=== PATIENT | female | born 1955 | race Caucasian/White ===

== ENCOUNTER 2016-07-29 21:04 | Emergency (ER) | payer BC ==
[~2016-07-29] VITALS: Ht 165.1 cm; Wt 73.6 kg
[2016-07-29 21:10] VITALS: TEMP 36.9; Ht 165.1 cm; Wt 73.6 kg
[2016-07-29] MEDS ORDERED: GLIM4TAB2 PO (21:51)
[2016-07-29] MEDS ORDERED: SITA50TA5 PO (21:51)
[2016-07-29] MEDS ORDERED: SODIUM CHLORIDE 0.9% 1000ML 1,000 ML IV STA (22:14)
[2016-07-29] MEDS ORDERED: SODIUM CHLORIDE 0.9% 500ML 500 ML IV STA (22:14)
[2016-07-29] MEDS ORDERED: ONDANSETRON INJ 2 MG/ML 2 ML VIAL IV STA (22:14)
[2016-07-29] MEDS ORDERED: MoRPHine SULFATE 4 MG/ML 1 ML CARP\\VIAL IV STA (22:14)
--- NOTE | 2016-07-29 22:44 | DIAGNOSTIC IMAGING REPORT ---
SINGLE VIEW CHEST CLINICAL HISTORY: Atypical chest pain. FINDINGS: An AP, portable, upright chest radiograph is obtained. No prior studies are available for comparison at the time of dictation. The examination is degraded by portable technique and patient rotation. The cardiomediastinal silhouette is unremarkable. Nonspecific interstitial thickening is noted. The lungs and pleural spaces are otherwise clear. No pneumothorax is seen. The skeletal structures are osteopenic. The bony thorax is grossly intact. IMPRESSION: No active disease in the chest. Electronically signed by: Dario Pérez M.D. 07/29/2016 10:42 PM Dictated Date/Time: 07/29/2016 10:42 PM
[2016-07-29 23:00] VITALS: O2SAT 99
[2016-07-29 23:13] LABS: BASO % 0.2 %; BASO ABS # 0.02 K/uL (0-0.2); COMPLETE YES; HEMATOCRIT 39.3 % (37-47); IG% 0.5 %; LYMPH % 8.2 %; LYMPH ABS # 0.85 K/uL (1.2-3.4); MEAN CELL VOLUME 86.6 fL (80-100); MEAN CORPUSCULAR HEMOGLOBIN 30.8 pg (25-34); MEAN CORPUSCULAR HGB CONC 35.6 g/dl (32-36); MEAN PLATELET VOLUME 8.5 fL (7.4-10.4); MONO % 5.4 %; NEUT % 85.7 %; PLATELET COUNT 234 K/uL (130-400); RED BLOOD COUNT 4.54 M/uL (4.2-5.4)
[2016-07-29 23:29] LABS: ALT/SGPT 34 U/L (12-78); BLOOD UREA NITROGEN 16 mg/dl (7-18); BUN/CREATININE RATIO 15.9 (10-20); CALCIUM 9.7 mg/dl (8.5-10.1); CARBON DIOXIDE 29 mmol/L (21-32); CHLORIDE 101 mmol/L (98-107); GLUCOSE 225 mg/dl (70-99); POTASSIUM 4.2 mmol/L (3.5-5.1); SODIUM 137 mmol/L (136-145)
[2016-07-29 23:34] LABS: ALKALINE PHOSPHATASE 84 U/L (45-117); AST/SGOT 19 U/L (15-37)
[2016-07-30] MEDS ORDERED: CEFOXITIN 2000MG/60 ML D5W IV STA (01:36)
[2016-07-30 03:12] VITALS: BP 132/72; PULSE 78; O2SAT 96
--- NOTE | 2016-07-30 03:22 | EMERGENCY ROOM VISIT NOTE ---
History First contact with patient: 22:04 Chief Complaint: ABDOMINAL PAIN Stated Complaint: BACK ACHE, STOMACH HURTS, VOMITING, HIGH SUGAR 249 Nursing Triage Summary: Pt c/o abd pain, nausea, vomiting, ongoing since this morning. Seen at [facility], "they couldn't find anything". pt given Zofran. Hx of Diabetes, last BSG 224 History of Present Illness The patient is a 60 year old female who presents to the Emergency Room with complaints of nausea, vomiting, epigastric right upper quadrant pain for the past several hours. Patient is visiting from [facility]. She is here for a conference. Patient had eggs and sausage this morning at around 11 had yogurt and shortly after that felt ill. She developed epigastric right quadrant pain and nausea and vomiting. Pain persisted and this prompted her to come to the ER. No history of similar symptoms in the past. Blood sugars are normally well controlled that were 224 today. Patient describes the pain as aching, ranging in severity 7 out of 10. Nothing makes it better or worse. Patient denies chest pain, dyspnea, diarrhea, urinary symptoms. No prior heart disease. She rarely drinks alcohol. Review of Systems See HPI for pertinent positives & negatives. A total of 10 systems reviewed and were otherwise negative. Past Medical/Surgical History Diabetes, hyperlipidemia Social History Smoking Status: Former Smoker Smokeless Tobacco Use: No Alcohol Use: occasionally Drug Use: none Marital Status: Housing Status: lives with family Occupation Status: employed Current/Historical Medications Scheduled Glimepiride (Glimepiride), Unknown Dose PO BID Sitagliptin-Metformin Hcl (Janumet), 1 TAB PO BID Allergies Coded Allergies: No Known Allergies (Unverified , 07/29/16) Physical Exam Vital Signs Date Time Temp Pulse Resp B/P (MAP) Pulse Ox O2 Delivery O2 Flow Rate FiO2 07/30/16 00:52 78 18 149/82 98 Room Air 07/29/16 23:10 76 20 148/89 99 Room Air 07/29/16 23:05 77 07/29/16 23:00 99 Room Air 07/29/16 23:00 99 Room Air 07/29/16 21:10 36.9 72 18 155/86 99 Room Air Pain Rating (0-10): 2.0 Physical Exam VITALS: Vitals are noted on the nurse's note and reviewed by myself. Vital signs stable. GENERAL: Pleasant female who appears in pain, in no acute distress, nondiaphoretic, well-developed well-nourished. SKIN: The skin was without rashes, erythema, edema, or bruising. There is no tenting of the skin. Capillary reflex less than 2 seconds. HEAD: Normocephalic atraumatic. EARS: External auditory canals clear, tympanic membranes pearly mensah without erythema or effusion bilaterally. EYES: Pupils equal round and reactive to light and accommodation. Conjunctivae without injection, sclerae without icterus. Extraocular movements intact. NOSE: Patent, turbinates without inflammation or discharge. MOUTH: Mucous membranes moist. Pharynx without erythema or exudate. Uvula midline. Airway patent. Tongue does not deviate. NECK: Supple without nuchal rigidity. No lymphadenopathy. No thyromegaly. Cervical spine is nontender. No JVD. HEART: Regular rate and rhythm without murmurs gallops or rubs. LUNGS: Clear to auscultation bilaterally without wheezes, rales or rhonchi. No dullness to percussion. No retractions or accessory muscle use. ABDOMEN: Positive bowel sounds x 4. Normal tympanic percussion. Soft, tender to palpation right upper quadrant, no CVA tenderness, without masses or organomegaly. Cartwright sign positive. No guarding or rebound tenderness. MUSCULOSKELETAL: No muscle atrophy, erythema, or edema noted. NEURO: Patient was alert and oriented to person place and time. Normal sensation to light and sharp touch. No focal neurological deficits. Medical Decision & Procedures Laboratory Results 07/29/16 23:00 Red Blood Count 4.54, Mean Corpuscular Volume 86.6, Mean Corpuscular Hemoglobin 30.8, Mean Corpuscular Hemoglobin Concent 35.6, Mean Platelet Volume 8.5, Neutrophils (%) (Auto) 85.7, Lymphocytes (%) (Auto) 8.2, Monocytes (%) (Auto) 5.4, Eosinophils (%) (Auto) 0.0, Basophils (%) (Auto) 0.2, Neutrophils # (Auto) 8.92, Lymphocytes # (Auto) 0.85, Monocytes # (Auto) 0.56, Eosinophils # (Auto) 0.00, Basophils # (Auto) 0.02 07/29/16 23:00 Test 07/29/16 23:00 07/29/16 23:06 White Blood Count 10.40 K/uL (4.8-10.8) Red Blood Count 4.54 M/uL (4.2-5.4) Hemoglobin 14.0 g/dL (12.0-16.0) Hematocrit 39.3 % (37-47) Mean Corpuscular Volume 86.6 fL (80-100) Mean Corpuscular Hemoglobin 30.8 pg (25-34) Mean Corpuscular Hemoglobin Concent 35.6 g/dl (32-36) Platelet Count 234 K/uL (130-400) Mean Platelet Volume 8.5 fL (7.4-10.4) Neutrophils (%) (Auto) 85.7 % Lymphocytes (%) (Auto) 8.2 % Monocytes (%) (Auto) 5.4 % Eosinophils (%) (Auto) 0.0 % Basophils (%) (Auto) 0.2 % Neutrophils # (Auto) 8.92 K/uL (1.4-6.5) Lymphocytes # (Auto) 0.85 K/uL (1.2-3.4) Monocytes # (Auto) 0.56 K/uL (0.11-0.59) Eosinophils # (Auto) 0.00 K/uL (0-0.5) Basophils # (Auto) 0.02 K/uL (0-0.2) RDW Standard Deviation 40.2 fL (36.4-46.3) RDW Coefficient of Variation 12.6 % (11.5-14.5) Immature Granulocyte % (Auto) 0.5 % Immature Granulocyte # (Auto) 0.05 K/uL (0.00-0.02) Anion Gap 7.0 mmol/L (3-11) Est Creatinine Clear Calc Drug Dose 59.4 ml/min Estimated GFR () 70.4 Estimated GFR (Non- 60.8 BUN/Creatinine Ratio 15.9 (10-20) Calcium Level 9.7 mg/dl (8.5-10.1) Total Bilirubin 0.4 mg/dl (0.2-1) Direct Bilirubin 0.1 mg/dl (0-0.2) Aspartate Amino Transf (AST/SGOT) 19 U/L (15-37) Alanine Aminotransferase (ALT/SGPT) 34 U/L (12-78) Alkaline Phosphatase 84 U/L (45-117) Troponin I < 0.015 ng/ml (0-0.045) Total Protein 7.6 gm/dl (6.4-8.2) Albumin 4.0 gm/dl (3.4-5.0) Lipase 291 U/L (73-393) Bedside Troponin I < 0.030 ng/ml (0-0.045) Medications Administered Medications (Trade) Dose Ordered Sig/Sury Route Start Time Stop Time Status Last Admin Dose Admin Morphine Sulfate (MoRPHine SULFATE INJ) 4 mg NOW STAT IV 07/29/16 22:14 07/29/16 22:16 DC 07/29/16 23:12 4 MG Ondansetron HCl (Zofran Inj) 4 mg NOW STAT IV 07/29/16 22:14 07/29/16 22:16 DC 07/29/16 23:12 4 MG Sodium Chloride 1,000 ml @ 125 mls/hr Q8H STAT IV 07/29/16 22:14 07/30/16 06:13 07/29/16 23:13 125 MLS/HR Sodium Chloride 500 ml @ 999 mls/hr Q31M STAT IV 07/29/16 22:14 07/29/16 22:44 DC 07/29/16 23:14 999 MLS/HR Cefoxitin Sodium (Mefoxin 2000mg/ 60 ml D5W) 2,000 mg NOW STAT IV 07/30/16 01:36 07/30/16 01:37 DC 07/30/16 01:47 2,000 MG ED Course Prior records/ancillary studies reviewed. Triage Nursing notes reviewed. The patient's history was concerning for abdominal pain. Differential diagnosis: Etiologies such as appendicitis, diverticulitis, PUD, biliary pathology, UTI, pancreatitis, obstruction, mesenteric ischemia, aortic pathology, infections, inflammatory bowel disease, renal colic, as well as others were entertained. Physical examination findings: As above. ER treatment provided: Morphine, Zofran, IV fluids, Mefoxin On reassessment the patient felt better. Diagnostics interpreted by me: ECG: Normal sinus, normal intervals, no acute ST-T wave changes. Impression normal sinus rhythm interpreted by myself The labs revealed no leukocytosis. Negative troponin Imaging studies: Chest x-ray with no acute consolidation, pneumothorax or free air per my interpretation Ultrasound was reviewed and read by stat radiology concerning for acute cholecystitis Consultation: A consultation was placed with the surgeon, Dr. Palmer. The case was discussed and diagnostics were reviewed. The patient was evaluated in the ER for further treatment. The patient is requesting to be transferred to [facility], where she is from. Arrangements were made by Dr. Palmer and Dr. Zapata is the accepting surgeon at the [facility]. Patient was transferred to [facility] via private vehicle in stable condition. Patient was given antibiotics. She was placed nothing by mouth. Exam and history seem consistent with acute cholecystitis. Patient is requesting transfer to her home hospital. These arrangements were made. She was informed to go to the nearest ER she had any problems in her travel back home. She verbalized understanding of this. She was advised no eating or drinking whatsoever. By the evaluation outlined above emergent etiologies such as appendicitis, diverticulitis, PUD, UTI, pancreatitis, obstruction, mesenteric ischemia, aortic pathology, inflammatory bowel disease, renal colic, as well as others were deemed relatively unlikely. The pt informed about the findings as listed above. All questions were answered and pleased with the treatment. Case was transferred to [facility], where she is fro in stable condition. Case reviewed with my attending. Medical Decision As above Impression Primary Impression: Acute cholecystitis Departure Information Dispostion Transfer Acute Care Facility Condition GOOD Forms HOME CARE DOCUMENTATION FORM, IMPORTANT VISIT INFORMATION Patient Instructions [facility], ED Gallbladder Infec Poss Additional Instructions Go straight to [place] [facility]. You should be evaluated by Dr. Krishna Haddad or his resident Yo[place]. Bring your paperwork with you. Leave your Hep-Lock IV site alone. Do not eat or drink anything. Go to nearest ER for fevers, vomiting, pain, worsening signs or symptoms or as needed.
--- NOTE | 2016-07-30 07:10 | DIAGNOSTIC IMAGING REPORT ---
ABDOMINAL ULTRASOUND, RIGHT UPPER QUADRANT HISTORY: epigastric pain. COMPARISON: None. FINDINGS: Pancreas: The pancreatic tail is obscured by overlying bowel gas. The remaining portions of the pancreas are within normal limits. Pancreatic duct is slightly prominent at 3 mm. Liver: Unremarkable. Gallbladder: There is a 3.2 cm stone within the neck of the gallbladder which is nonmobile. The gallbladder mccoy thickened up to 7 mm and appears heterogeneous. There may be edema within the wall at the hepatic surface. A few punctate foci of common tail artifact within the gallbladder wall. CBD: 8 mm in diameter. Right kidney: No hydronephrosis. IMPRESSION: A 3.2 cm stone which may be impacted in the gallbladder neck. The gallbladder wall is thickened and appears edematous. Findings are concerning for acute cholecystitis. Clinical recommended. Electronically signed by: Donavon Holden M.D. 07/30/2016 7:09 AM Dictated Date/Time: 07/30/2016 7:06 AM
--- NOTE | 2016-07-30 07:12 | SURGICAL CONSULTATION ---
DATE OF CONSULTATION: 07/30/2016 I have been asked by Patricia Francisco PA-C, to see this 60-year-old female who presented to the Emergency Room with a complaint of upper abdominal pain that began at noontime. The pain was described as sharp and severe. It radiated through to her back and then was associated with nausea and she had a few episodes of vomiting. There was no hematemesis. She has never had pain like this before. It was slightly exacerbated by motion. She had 2 normal bowel movements without melena or hematochezia and had no dysuria or hematuria. She presented to the emergency room where a workup was performed and she was given morphine. The most recent morphine was 2 hours prior to my visit. At the time that I saw her, she was pain free. PAST MEDICAL HISTORY: For type 2 diabetes and hypercholesterolemia, although she chose not to be medicated for the hypercholesterolemia. PAST SURGICAL HISTORY: None. MEDICATIONS: Glimepiride and Janumet. ALLERGIES: None. PHYSICAL EXAMINATION: GENERAL: Reveals a well-developed, well-nourished female who appears in no acute distress. VITAL SIGNS: Blood pressure 132/72, heart rate 78, respirations 18, temperature 36.9, pulse oximetry is 96% on room air. HEENT: Reveals the sclerae to be anicteric. Mucous membranes are moist. NECK: Supple with no adenopathy. BACK: Has no spinal or CVA tenderness. LUNGS: Clear. HEART: Regular. ABDOMEN: Soft, nondistended, nontender, with no masses and no hepatomegaly. EXTREMITIES: Reveal no edema. LABORATORY DATA: WBC 10.4, H&H is 14.0 and 39.3, platelet count is 234,000. Sodium 137, potassium 4.2, chloride 101, CO2 of 29, BUN 16, creatinine 1.0, total bilirubin 0.4, AST 19, ALT 84, alkaline phosphatase 84. Troponin I is less than 0.30. Lipase 291. Ultrasound of the gallbladder and liver showed a large shadowing stone near the neck of the gallbladder, measuring 3.2 cm, and appeared to be nonmobile. The gallbladder wall was 7 mm and heterogeneous, suggesting edema. There may have been a small amount of free fluid and the common bile duct measured 8 mm. ASSESSMENT AND PLAN: This patient has cholelithiasis with an episode of acute cholecystitis, but her symptoms have resolved and she is not tender. I recommended that she undergo a cholecystectomy. She does not want the procedure performed at [facility] as she is from the [place] area and lives near [facility]. We have arranged for her to go to the Emergency Room at [facility] immediately after leaving [facility]. She assures me she will do that. I have contacted the surgical appliances salesperson at [facility] who contacted the surgeon on-call and has agreed to accept the patient.
== END 2016-07-30 03:14 | disposition short-term general hospital (02) ==
LOC: C.EDB 21:06
DX: K81.0 Acute cholecystitis (principal); E11.9 Type 2 diabetes mellitus without complications; E78.5 Hyperlipidemia, unspecified; Z87.891 Personal history of nicotine dependence; Z79.899 Other long term (current) drug therapy